=== PATIENT | female | born 2000 | race Asian ===

== ENCOUNTER 2023-05-26 06:16 | Emergency (ER) | payer OTHER, SELFPAY ==
--- NOTE | ~2023-05-26 | US_ITS ---
EXAMINATION: US PELVIS COMPLETE CLINICAL INFORMATION: Lower abdominal pain COMPARISON: CT abdomen from 05/26/2023 TECHNIQUE: Transabdominal images of the pelvis were obtained. FINDINGS: UTERUS: Anteverted. Normal size and contour, measuring 7.6 x 3.6 x 4.6 cm (cervix to fundus x AP x transverse). Uniform, homogeneous endometrium measures 1.2 cm in width. RIGHT OVARY: Normal size and echogenicity measuring 3.4 x 2.6 x 2 3.6 cm, volume 16.7 mL. Vascular flow noted in the right ovary. Complex hypoechoic focus in the right ovary measuring 1.7 x 1.8 x 1.3 cm. LEFT OVARY: Normal size and echogenicity measuring 1.7 x 0.8 x 1.3 cm, volume 0.9 mL. Vascular flow noted in the left ovary. FREE FLUID: No pelvic free fluid. US/US pelvic ovarian doppler IMPRESSION: 1. Bilateral ovarian vascular flow identified. 2. Complex hypoechoic focus in the right ovary measuring 1.7 x 1.8 x 1.3 cm.
--- NOTE | ~2023-05-26 | US_ITS ---
EXAMINATION: US PELVIS COMPLETE CLINICAL INFORMATION: Lower abdominal pain COMPARISON: CT abdomen from 05/26/2023 TECHNIQUE: Transabdominal images of the pelvis were obtained. FINDINGS: UTERUS: Anteverted. Normal size and contour, measuring 7.6 x 3.6 x 4.6 cm (cervix to fundus x AP x transverse). Uniform, homogeneous endometrium measures 1.2 cm in width. RIGHT OVARY: Normal size and echogenicity measuring 3.4 x 2.6 x 2 3.6 cm, volume 16.7 mL. Vascular flow noted in the right ovary. Complex hypoechoic focus in the right ovary measuring 1.7 x 1.8 x 1.3 cm. LEFT OVARY: Normal size and echogenicity measuring 1.7 x 0.8 x 1.3 cm, volume 0.9 mL. Vascular flow noted in the left ovary. FREE FLUID: No pelvic free fluid. US/US pelvic limited IMPRESSION: 1. Bilateral ovarian vascular flow identified. 2. Complex hypoechoic focus in the right ovary measuring 1.7 x 1.8 x 1.3 cm.
--- NOTE | ~2023-05-26 | CT_ITS ---
EXAMINATION: CT ABDOMEN AND PELVIS WITH CONTRAST CLINICAL INFORMATION: Abdominal pain COMPARISON: None available. TECHNIQUE: Multidetector volumetric images were obtained from the superior aspect of the liver through the pubic symphysis following administration 85 mL of Omnipaque 350 intravenous contrast. Sagittal and coronal reformatted images were obtained on the technologist's workstation. Oral contrast: No This CT examination was performed using dose optimization techniques as appropriate, variously including the following: *Automated exposure control *Adjustment of mA and/or kV according to patient size (this includes techniques or standardized protocols for targeted exams where dose is matched to indication/reason for exam; i.e. extremities or head) *Use of iterative reconstruction technique DLP: 477 mGy-cm FINDINGS: LUNG BASES: The visualized lung bases are unremarkable. LIVER, GALLBLADDER, AND BILIARY TREE: The liver is normal in size, shape, and attenuation. No focal hepatic lesion or biliary ductal dilatation is present. The gallbladder is unremarkable with no evidence of radiopaque gallstones, gallbladder wall thickening, or obvious pericholecystic inflammatory changes. PANCREAS: Unremarkable. SPLEEN: Unremarkable. ADRENAL GLANDS: Unremarkable. KIDNEYS AND URETERS: The kidneys are normal in size, shape, and attenuation. No hydronephrosis, hydroureter, or calculi seen. No perinephric stranding. BLADDER: Unremarkable. GASTROINTESTINAL TRACT: The small and large bowel are unremarkable. The appendix is unremarkable. There is large amount of retained feces consistent with constipation. ABDOMINAL WALL: No significant hernia is appreciated. LYMPH NODES: Normal. VASCULAR: Unremarkable. PELVIC VISCERA: Uterus is anteverted. There is small amount of fluid in right adnexa, adjacent to the cystic structure in the right ovary, left ovary is unremarkable OSSEOUS STRUCTURES: Unremarkable. CT/CT abdomen pelvis w IV con IMPRESSION: Constipation. Small amount of fluid in the right adnexa adjacent to cystic structure in the right ovary. Correlate with pelvic ultrasound Fleischner guidelines were followed.
[2023-05-26 06:21] VITALS: BP 133/77; PULSE 87; RESP 16; TEMP 36.9; O2SAT 98; BMI 28.0
[2023-05-26 07:28] VITALS: BP 125/90; PULSE 74; RESP 19; TEMP 36.7; O2SAT 100
[2023-05-26 07:47] LABS: MANUAL DIFF FLAG NO
[2023-05-26 07:51] LABS: Basophils Absolute Auto 0.1 X10*3/uL (0.0-0.2); Basophils Percent Auto 0.7 % (0-2); Eosinophils Absolute Auto 0.2 X10*3/uL (0.0-0.4); Eosinophils Percent Auto 2.5 % (0-4); Hematocrit 41.7 % (37.0-47.0); Hemoglobin 13.6 g/dl (12.0-16.0); Imm Gran Abs Auto 0.02 X10*3/uL (0.00-0.03); Imm Gran Pct Auto 0.2 % (0.0-0.4); Lymphocytes Absolute Auto 3.5 X10*3/uL (1.2-4.9); Lymphocytes Percent Auto 41.4 % (20-40); Mean Corpuscular HGB Conc 32.6 g/dl (31.0-35.0); Mean Corpuscular Hemoglobin 27.9 pg (27.0-33.0); Mean Corpuscular Volume 85.6 fL (80.0-98.0); Mean Platelet Volume 9.7 fL (9.4-12.3); Monocytes Absolute Auto 0.6 X10*3/uL (0.1-1.2); Monocytes Percent Auto 7.6 % (2-11); Neutrophils Percent Auto 47.6 % (45-73); Platelet Count 391 X10*3/uL (160-400); Red Blood Count 4.87 X10*6/uL (4.20-5.50); Red Cell Distribution Width 12.7 % (11.0-16.0); White Blood Count 8.4 X10*3/uL (4.8-10.8)
--- NOTE | 2023-05-26 07:57 | ED.GENADULT ---
HPI - General Adult General Chief complaint: Abdominal Pain Stated complaint: Abd pain Time Seen by Provider: 05/26/23 07:39 Source: patient Mode of arrival: ambulatory Limitations: no limitations History of Present Illness HPI narrative: 22 yr old female with a history of chronic constipation on daily Miralax presenting with abdominal pain and constipation for 5 days. Patient reports she has been having sharp pain below her belly button that radiates to her buttocks since Sunday that is severe. She states went to the ER on Sunday per recommendation for her PCP, but she left because the wait was too long. She states her pain improved Sunday, but this morning she woke up with 12/10 pain. Currently pain is about 2/10. Patient denies fever, chills, sick contacts, nausea, vomiting, diarrhea, pain with urination, or increased urination. Patient reports her last bowel movement was on Sunday that was soft and formed. She states that many of her previous bowel movements have had bright red blood and required straining last time she noted blood in stool was over a week and a half ago. She denies pain with defecation. Patients periods are regular with next period expect on 06/03. Denies being sexually active. Patient previously present to the ER at [facility] about 1 month ago and was diagnosed with colitis. Patient has an appointment with GI on 06/11. Related Data Previous Rx's Medication Instructions Recorded docusate sodium 100 mg capsule 100 mg PO BID #20 caps 05/26/23 (Colace) sennosides 8.6 mg tablet (senna) 8.6 mg PO BEDTIME #14 tabs 05/26/23 Allergies Allergy/AdvReac Type Severity Reaction Status Date / Time No Known Allergies Allergy Verified 05/26/23 06:21 Review of Systems Review of Systems: Constitutional : No Weight loss, No Fever, No Chills, No Fatigue, No Malaise ENT/Mouth : No sore throat, No Rhinorrhea Eyes: No Eye Pain, No Swelling, No Redness Cardiovascular : No Chest Pain, No SOB, No Dyspnea on Exertion, No Orthopnea, No Edema, No Palpitations Respiratory : No Cough, No Sputum, No Wheezing Gastrointestinal : + abdominal pain, constipation. No Nausea, No Vomiting, No Diarrhea,No Hematochezia, No Melena Genitourinary : No Dysuria, No Urinary Frequency, No Hematuria, Musculoskeletal : No joint pain, No Myalgias, No Joint Swelling Skin : No Skin Lesions, No rash Neuro : No Weakness, No Numbness, No Dizziness, No Headache Psych : No Anxiety/Panic, No Depression Heme/Lymph: No Bruising, No Bleeding,No Lymphadenopathy Endocrine : No Polyuria, No Polydipsia All other systems reviewed and are negative [facility] Social History Social History Smoked in Last 30 Days: No Use of substances other than those prescribed or required for medical reasons: No Advance Directives: No Physical Exam ED Vital Signs: Vital Signs - 24 hr 05/26/23 06:21 05/26/23 07:28 Temperature 98.4 F 98.0 F Pulse Rate 87 74 Respiratory Rate 16 19 Blood Pressure 133/77 125/90 H Pulse Oximetry 98 100 Oxygen Delivery Method Room Air Room Air BMI result Body Mass Index 28.0 vss Appearance: Alert.? Oriented X3.? No acute distress.? Head: Normocephalic, atraumatic, no step-offs or deformities Eyes: Pupils equal, round and reactive to light.? ENT: Pharynx normal.??External ears normal, TMs normal bilaterally and EAC's normal. No pain with manipulation of external ears bilaterally. No mastoid tenderness. Neck: Normal inspection.? Neck supple.? CVS: Normal heart rate and rhythm.? Pulses normal.? Respiratory: No respiratory distress.? Breath sounds normal.? Abdomen: + midline periumbilical and epigastric pain to palpation. No rebound tenderness. Abdomen soft with active bowel sounds throughout. Negative McBurney's sign. Skin: Skin warm and dry.? Normal skin color.? Normal skin turgor.? Extremities: No lower extremity edema.? No calf ttp. 5/5 strength to bilateral upper and lower extremities Back: No midline tenderness, no C-spine tenderness, full range of motion, no CVA tenderness bilaterally Neuro: Oriented X 3.? No motor deficit.? No sensory deficit. CN 2-12 intact Course Reevaluation(s) Reevaluation #1: CBC unremarkable. Chemistry no acute findings requiring intervention. Lipase normal. Beta hCG negative. UA without infection. No need for rectal exam patient very anxious about this, she has not having active rectal bleeding she states the last time she blood in her stool was over a week and a half ago. She did speak to her doctor about this and they explained her she likely has hemorrhoids. She is waiting to see GI. CT abdomen pelvis with constipation and small amount of fluid in the right adnexa, cystic structure in the right ovary, ultrasound was ordered better evaluate this as patient is having lower abdominal pain. Ultrasound showing bilateral ovarian vascular flow identified therefore unlikely torsion. No signs of ectopic . However ultrasound does show a complex hypoechoic focus in the right ovary measuring 1.7 x 1.8 x 1.3 cm. Advised for her to follow-up with PCP as well as OBGYN. Will discharge patient home with Raymon benitez. Patient reports her pain is well controlled and she feels okay. She is requesting to leave because she has prior commitments and needs to get out of here before 02:00 o'clock. Tolerating PO. Educated patient on diagnosis and treatment plan, answered all question, patient verbalizes understanding. At this time patient will be discharged home, advised to return with new or worsening symptoms. Educated on worrisome signs and symptoms and when to return. At this time I feel comfortable discharge home. Time: 12:58 Medications Administered Discontinued Medications Generic Name Dose Route Start Last Admin Trade Name Freq PRN Reason Stop Dose Admin Iohexol 100 ml 05/26/23 08:44 05/26/23 08:44 Iohexol 350 Mg/Ml 100 Ml Infus..Btl IV 05/26/23 08:45 85 ml ONCE ONE Administration Medical Decision Making Medical Decision Making [facility] Narrative: 22 yr old female with a history of chronic constipation on daily Miralax presenting with abdominal pain and constipation for 5 days. PE significant for periumbilical and epigastric pain to palpation. Negative McBurneys. Most likely colitis vs constipation vs hemorrhoids. Unlikely obstruction, diverticulosis, pancreatitis, appendicitis, , acute abdomen, ovarian torsion, ovarian cyst, uterine fibroids/cysts, cholesytitis. Plan labs, imaging Differential Diagnosis Differential Diagnoses: The differential diagnosis associated with the presentation includes Most likely colitis vs constipation vs hemorrhoids. Unlikely obstruction, diverticulosis, pancreatitis, appendicitis, , acute abdomen, ovarian torsion, ovarian cyst, uterine fibroids/cysts, cholesytitis. Admission/Observation Consideration of admission/observation: Escalation of care including admission/observation considered Lab Data [facility] Lab Attestation statement: I reviewed the patient's lab results. CBC and CMP WNL HcG < 2 Lipase negative UA 05/26/23 07:43 05/26/23 07:43 Labs: Lab Results 05/26/23 05/26/23 Range/Units 07:43 10:55 WBC 8.4 (4.8-10.8) X10*3/uL RBC 4.87 (4.20-5.50) X10*6/uL Hgb 13.6 (12.0-16.0) g/dl Hct 41.7 (37.0-47.0) % MCV 85.6 (80.0-98.0) fL MCH 27.9 (27.0-33.0) pg MCHC 32.6 (31.0-35.0) g/dl RDW 12.7 (11.0-16.0) % Plt Count 391 (160-400) X10*3/uL MPV 9.7 (9.4-12.3) fL Immature Gran % (Auto) 0.2 (0.0-0.4) % Neut % (Auto) 47.6 (45-73) % Lymph % (Auto) 41.4 H (20-40) % Andrew % (Auto) 7.6 (2-11) % Eos % (Auto) 2.5 (0-4) % Baso % (Auto) 0.7 (0-2) % Lymph # (Auto) 3.5 (1.2-4.9) X10*3/uL [place] # (Auto) 0.6 (0.1-1.2) X10*3/uL Eos # (Auto) 0.2 (0.0-0.4) X10*3/uL Baso # (Auto) 0.1 (0.0-0.2) X10*3/uL Abs Immat Gran (auto) 0.02 (0.00-0.03) X10*3/uL Absolute Neuts (auto) 4.0 (2.0-8.3) x10*3/uL Absolute Nucleated RBC 0.000 (0.0-0.012) X10*3/uL Nucleated RBC % (auto) 0.0 (0.0-0.2) /100WBC Sodium 141 (135-145) mmol/L Potassium 4.2 (3.3-5.1) mmol/L Chloride 111 H (96-108) mmol/L Carbon Dioxide 23 (22-29) mmol/L Anion Gap 11 L (12-20) BUN 8 L (9-16) mg/dL Creatinine 0.72 (0.5-1.4) mg/dL Estim Creat Clear Calc 104.0 Estimated GFR > 60 Random Glucose 95 (60-115) mg/dL Calcium 9.5 (8.4-10.2) mg/dL Total Bilirubin 0.2 (0.0-1.0) mg/dL AST 20 (5-31) U/L ALT 21 (0-31) U/L Alkaline Phosphatase 91 (39-117) U/L Total Protein 7.5 (6.5-8.0) g/dL Albumin 4.2 (3.5-5.0) g/dL Lipase 27 (8-78) U/L Beta HCG, Quant < 2 mIU/mL Urine Color Yellow Urine Appearance Clear Urine pH 7.0 (5.0-9.0) Ur Specific [place] >= 1.030 H (1.005-1.025) Urine Protein Negative (Neg-Trace) mg/dL Urine Glucose (UA) Negative (Negative) mg/dL Urine Ketones Negative (Negative) mg/dL Urine Blood Negative (Negative) Urine Nitrite Negative (Negative) Ur Leukocyte Esterase Negative (Negative) Independent Interpretation I performed an independent interpretation of an: Ultrasound (US/US pelvic limited IMPRESSION: 1. Bilateral ovarian vascular flow identified. 2. Complex hypoechoic focus in the right ovary measuring 1.7 x 1.8 x 1.[address] Scan (CT abdomen pelvis w IV con IMPRESSION: Constipation. Small amount of fluid in the right adnexa adjacent to cystic structure in the right ovary. Correlate with pelvic ultrasound) Radiology Impression Discussion of test interpretation with radiology: I have reviewed the radiologist's reading. Radiologist Impression: CT abdomen pelvis w IV con IMPRESSION: Constipation. Small amount of fluid in the right adnexa adjacent to cystic structure in the right ovary. Correlate with pelvic ultrasound US/US pelvic limited IMPRESSION: 1. Bilateral ovarian vascular flow identified. 2. Complex hypoechoic focus in the right ovary measuring 1.7 x 1.8 x 1.3 cm. Patient refused transvaginal US External Record Review External record reviewed: Inpatient record Critical Care Time Critical Care Time Critical Care Time: No Discharge Plan Discharge Clinical Impression: Constipation, Ovarian cyst, right, Abdominal pain Patient Disposition: Home, Self-Care Instructions: Ovarian Cyst (ED), Constipation (ED), High Fiber Diet (ED), Abdominal Pain (ED) Additional Instructions: Take your medications as prescribed. If you were prescribed antibiotics today, it is important that you take your medication to their entirety, do not skip any doses, do not finish them early. Follow-up with your primary care provider this week. Return to the emergency department with new or worsening symptoms. Such as fevers, chills, chest pain, shortness of breath, nausea, vomiting, dizziness, headache, vision changes, lethargy In case of emergency call 911 CT/CT abdomen pelvis w IV con IMPRESSION: Constipation. Small amount of fluid in the right adnexa adjacent to cystic structure in the right ovary. Correlate with pelvic ultrasound Fleischner guidelines were followed. US/US pelvic limited IMPRESSION: 1. Bilateral ovarian vascular flow identified. 2. Complex hypoechoic focus in the right ovary measuring 1.7 x 1.8 x 1.3 cm. Prescriptions: New sennosides [senna] 8.6 mg tablet 8.6 mg PO BEDTIME Qty: 14 0RF docusate sodium [Colace] 100 mg capsule 100 mg PO BID Qty: 20 0RF Referrals: Loreta Rios MD [Primary Care Provider] - 2 days [facility]Provider Group] - 2 days Stand Alone Forms: Work/School Release
[2023-05-26 08:16] LABS: Alanine Aminotransferase 21 U/L (0-31); Albumin Level 4.2 g/dL (3.5-5.0); Alkaline Phosphatase 91 U/L (39-117); Anion Gap 11 (12-20); Aspartate Amino Transferase 20 U/L (5-31); Bilirubin Total 0.2 mg/dL (0.0-1.0); Blood Urea Nitrogen 8 mg/dL (9-16); Calcium 9.5 mg/dL (8.4-10.2); Carbon Dioxide 23 mmol/L (22-29); Chloride 111 mmol/L (96-108); Estimated Glomerular Filt Rate > 60; Glucose Random 95 mg/dL (60-115); Lipase 27 U/L (8-78); Potassium 4.2 mmol/L (3.3-5.1); Sodium 141 mmol/L (135-145); Total Protein 7.5 g/dL (6.5-8.0)
[2023-05-26 08:19] LABS: HCG Quantitative < 2 mIU/mL
--- NOTE | 2023-05-26 08:25 | PC.NURSE ---
assumed care of pt at 0700. pt a&o x4, pleasant, calm, and cooperative. labs drawn and sent. 20G IV placed to RAC. pt to CT scan. plan of care ongoing.
[2023-05-26] MEDS: iohexoL 350 MG/ML 100 ML INFUS..BTL IV (08:44)
[2023-05-26 11:05] LABS: Appearance Urine Clear; Color Urine Yellow; Glucose Urine UA Negative (Negative); Leukocyte Esterase Urine Negative (Negative); Nitrite Urine Negative (Negative); Specific Gravity - Urine >= 1.030 (1.005-1.025); Urine Blood Negative (Negative); Urine Ketones Negative (Negative); Urine Protein Negative (Neg-Trace)
[2023-05-26] MEDS: polyethylene glycoL 3350 17 GM POWD.PACK PO (13:01)
[2023-05-26] MEDS: Docusate Sodium 100 MG CAPSULE PO (13:01)
== END 2023-05-26 13:25 | disposition home or self-care (01) ==
PROVIDERS: Emergency Provider Emergency Medicine; PCP Internal Medicine
DX: K59.00 Constipation, unspecified (principal); N83.201 Unspecified ovarian cyst, right side; R10.9 Unspecified abdominal pain
CPT/HCPCS: 36415; 74177; 76856; 76857; 80053; 81003; 83690; 84702; 85025; 93975; 99284; Q9967

== ENCOUNTER 2024-04-26 18:04 | Emergency (ER) | payer OTHER, SELFPAY ==
--- NOTE | ~2024-04-26 | XR_ITS ---
EXAMINATION: XR ABDOMEN KUB CLINICAL INDICATION: constipation COMPARISON: None available. TECHNIQUE: AP view of the abdomen. FINDINGS: The bowel gas pattern is normal with no evidence of ileus or obstruction. No unusual soft tissue calcifications are noted. The bones are unremarkable. XR/XR KUB IMPRESSION: Unremarkable examination. Electronically signed by: Aren Gonzalez MD 04/26/2024 08:17 PM [facility]
[2024-04-26 18:13] VITALS: BP 151/104; PULSE 118; RESP 20; TEMP 37.3; O2SAT 98; BMI 27.4
--- NOTE | 2024-04-26 18:13 | ED.GENADULT ---
HPI - General Adult General Chief complaint: Abdominal Pain Stated complaint: constipation Time Seen by Provider: 04/26/24 20:12 Source: patient Limitations: no limitations History of Present Illness ED Provider: Tonya Gant PA-C HPI narrative: 23-year-old female with a history of, constipation followed by Gastroenterology, presents with constipation times 4 days. Patient states she takes a prescription medication to manage her constipation. She states she exercises daily, she follows a strict high-fiber diet, and drinks at least 8 oz of water a day. Despite her efforts, the patient still struggles with constipation. Associated abdominal distention, and inability to fully empty her bladder. Denies inability to pass flatus, nausea vomiting or fever. Related Data Previous Rx's ?Medication ?Instructions ?Recorded docusate sodium 100 mg capsule 100 mg PO BID #20 caps 05/26/23 (Colace) sennosides 8.6 mg tablet (senna) 8.6 mg PO BEDTIME #14 tabs 05/26/23 Allergies Allergy/AdvReac Type Severity Reaction Status Date / Time No Known Allergies Allergy Verified 04/26/24 18:15 Review of Systems Review of Systems: Yes all other systems are reviewed and are negative Constitutional: Constitutional: Denies fatigue and Denies fever(s) Cardiovascular: Cardiovascular: Denies chest pain and Denies dyspnea Respiratory: Respiratory: Denies dyspnea Gastrointestinal: Gastrointestinal: Reports abdominal pain, Reports bloating, Reports constipation, Reports GI cramping, Denies nausea and Denies vomiting Endocrine: Endocrine: Denies fatigue PMFSH Past Medical History Attestation statement: The following information was validated with the patient. Social History Social History Alcohol intake: never Smoked in Last 30 Days: No Use of substances other than those prescribed or required for medical reasons: No Advance Directives: No Advance Directives Information Provided: No Patient : No Physical Exam ED Vital Signs: Vital Signs - 24 hr 04/26/24 18:13 04/26/24 19:55 04/26/24 22:06 Temperature 99.1 F 98.4 F 98.6 F Pulse Rate 118 H 100 98 Respiratory Rate 20 16 16 Blood Pressure 151/104 H 124/82 113/81 Pulse Oximetry 98 98 98 Oxygen Delivery Method Room Air Room Air Room Air 04/27/24 00:11 04/27/24 01:10 Temperature 98.4 F 98.4 F Pulse Rate 105 H 105 H Respiratory Rate 16 16 Blood Pressure 129/73 129/73 Pulse Oximetry 96 96 Oxygen Delivery Method Room Air Room Air BMI result Body Mass Index 27.4 Const Other: Alert, anxious and tearful Orientation/consciousness: patient oriented x3 Resp Other: Nonlabored respiration Cardio Other: Normal peripheral perfusion GI Other: Abdomen is soft, nondistended, generalized tenderness across the abdomen, no guarding fecal impaction noted Skin Other: Warm dry no rash Neuro General: patient oriented x3, gait normal, no focal motor deficits and CN's II-XI intact bilaterally Psych Other: cooperative Course Course Course Narrative: This is an RME: Additional HPI, ROS, PE not included below will be deferred to primary provider. RME assessment and note performed by: Arabella Kimball PA-C 22 yr old female with a history of chronic constipation, who presents emergency department with concerns for worsening chronic constipation. Patient has been seen by Gastroenterology, and has been to the ER multiple times for similar symptoms. She has been taking [id number] medications without relief. Patient reports distended abdomen, last bowel movement was on Sunday. Abdomen is soft however slightly distended. Patient states that she has been unable to use a suppository given hemorrhoids. Plan: Labs, UA, KUB Medications Administered Discontinued Medications Generic Name Dose Route Start Last Admin Trade Name Freq PRN Reason Stop Dose Admin Diazepam 5 mg 04/26/24 21:01 04/26/24 21:11 Diazepam 10 Mg/2 Ml Cartridge IVPUSH 04/26/24 21:02 5 mg STAT STA Administration Medical Decision Making Medical Decision Making [facility] Narrative: 23-year-old female with a history of, constipation followed by Gastroenterology, presents with constipation times 4 days. Patient states she takes a prescription medication to manage her constipation. She states she exercises daily, she follows a strict high-fiber diet, and drinks at least 8 oz of water a day. Despite her efforts, the patient still struggles with constipation. Associated abdominal distention, and inability to fully empty her bladder. Denies inability to pass flatus, nausea vomiting or fever. Problem: Chronic constipation History: Per patient I have considered the following differential diagnoses: Constipation, fecal impaction, bowel obstruction, obstipation, megacolon Plan: Screening labs and a KUB were obtained from triage, the patient is in fact constipated with a fecal impaction. We will disimpact the patient. No evidence of bowel obstruction. I have independently reviewed the following tests: Labs: Slight leukocytosis, not anemic, no electrolyte abnormality KUB: XR/XR KUB IMPRESSION: Unremarkable examination. Lab Data 04/26/24 19:16 04/26/24 19:16 Labs: Lab Results 04/26/24 Range/Units 19:16 WBC 12.9 H (4.8-10.8) X10*3/uL RBC 5.05 (4.20-5.50) X10*6/uL Hgb 12.3 (12.0-16.0) g/dl Hct 39.3 (37.0-47.0) % MCV 77.8 L (80.0-98.0) fL MCH 24.4 L (27.0-33.0) pg MCHC 31.3 (31.0-35.0) g/dl RDW 15.6 (11.0-16.0) % Plt Count 557 H D (160-400) X10*3/uL MPV 9.3 L (9.4-12.3) fL Immature Gran % (Auto) 0.3 (0.0-0.4) % Neut % (Auto) 65.0 (45-73) % Lymph % (Auto) 26.4 (20-40) % [place] % (Auto) 7.1 (2-11) % Eos % (Auto) 0.7 (0-4) % Baso % (Auto) 0.5 (0-2) % Lymph # (Auto) 3.4 (1.2-4.9) X10*3/uL [place] # (Auto) 0.9 (0.1-1.2) X10*3/uL Eos # (Auto) 0.1 (0.0-0.4) X10*3/uL Baso # (Auto) 0.1 (0.0-0.2) X10*3/uL Abs Immat Gran (auto) 0.04 H (0.00-0.03) X10*3/uL Absolute Neuts (auto) 8.4 H (2.0-8.3) x10*3/uL Absolute Nucleated RBC 0.000 (0.0-0.012) X10*3/uL Nucleated RBC % (auto) 0.0 (0.0-0.2) /100WBC Sodium 139 (135-145) mmol/L Potassium 4.1 (3.3-5.1) mmol/L Chloride 109 H (96-108) mmol/L Carbon Dioxide 20 L (22-29) mmol/L Anion Gap 14 (12-20) BUN 7 L (9-16) mg/dL Creatinine 0.77 (0.5-1.4) mg/dL Estim Creat Clear Calc 99.5 Estimated GFR > 60 Random Glucose 99 (60-115) mg/dL Calcium 9.5 (8.4-10.2) mg/dL Magnesium 2.1 (1.6-2.6) mg/dL Total Bilirubin 0.3 (0.0-1.0) mg/dL AST 30 (5-31) U/L ALT 21 (0-31) U/L Alkaline Phosphatase 94 (39-117) U/L Total Protein 8.6 H (6.5-8.0) g/dL Albumin 4.7 (3.5-5.0) g/dL Lipase 20 (8-78) U/L Beta HCG, Quant < 2 mIU/mL Discharge Plan Discharge Clinical Impression: Constipation Patient Disposition: Home, Self-Care Instructions: Constipation (ED) Additional Instructions: You were found to be constipated and had a fecal impaction. The fecal impaction was removed. You still have a significant stool burden. Tomorrow, you need to use MiraLax every hour until you begin defecating clear liquid. You essentially are performing a bowel preparation as if you were having a colonoscopy. I would start using a stool softener such as Colace daily, this medication can be purchased [id number]. Once you have cleared your current stool burden, I would resume the prescribed medication that your bss solution architect has given you. In addition, I would suggest using a pre and pro biotic supplement such as Super greens. I would also call your bss solution architect on Sunday for further guidance. Prescriptions: No Action sennosides [senna] 8.6 mg tablet 8.6 mg PO BEDTIME Qty: 14 0RF docusate sodium [Colace] 100 mg capsule 100 mg PO BID Qty: 20 0RF Stand Alone Forms: Work/School Release Interventions: ED Discharge Assessment Last Done: 04/27/24 01:10 Discharge Date/Time: 04/27/24 01:00 Print Language: Japanese
--- NOTE | 2024-04-26 19:17 | MHC.EDTECH ---
Patient was called to triage area,labs drawn and sent to lab,pt was unable to give a urine at this time.
[2024-04-26 19:26] LABS: MANUAL DIFF FLAG NO
[2024-04-26 19:27] LABS: Basophils Absolute Auto 0.1 X10*3/uL (0.0-0.2); Basophils Percent Auto 0.5 % (0-2); Eosinophils Absolute Auto 0.1 X10*3/uL (0.0-0.4); Eosinophils Percent Auto 0.7 % (0-4); Hematocrit 39.3 % (37.0-47.0); Hemoglobin 12.3 g/dl (12.0-16.0); Imm Gran Abs Auto 0.04 X10*3/uL (0.00-0.03); Imm Gran Pct Auto 0.3 % (0.0-0.4); Lymphocytes Absolute Auto 3.4 X10*3/uL (1.2-4.9); Lymphocytes Percent Auto 26.4 % (20-40); Mean Corpuscular HGB Conc 31.3 g/dl (31.0-35.0); Mean Corpuscular Hemoglobin 24.4 pg (27.0-33.0); Mean Corpuscular Volume 77.8 fL (80.0-98.0); Mean Platelet Volume 9.3 fL (9.4-12.3); Monocytes Absolute Auto 0.9 X10*3/uL (0.1-1.2); Monocytes Percent Auto 7.1 % (2-11); Neutrophils Absolute Auto 8.4 x10*3/uL (2.0-8.3); Platelet Count 557 X10*3/uL (160-400); Red Blood Count 5.05 X10*6/uL (4.20-5.50); Red Cell Distribution Width 15.6 % (11.0-16.0); White Blood Count 12.9 X10*3/uL (4.8-10.8)
[2024-04-26 19:47] LABS: Alanine Aminotransferase 21 U/L (0-31); Albumin Level 4.7 g/dL (3.5-5.0); Alkaline Phosphatase 94 U/L (39-117); Anion Gap 14 (12-20); Aspartate Amino Transferase 30 U/L (5-31); Bilirubin Total 0.3 mg/dL (0.0-1.0); Blood Urea Nitrogen 7 mg/dL (9-16); Calcium 9.5 mg/dL (8.4-10.2); Carbon Dioxide 20 mmol/L (22-29); Chloride 109 mmol/L (96-108); Creatinine Clr Calc Pharmacy 99.5; Estimated Glomerular Filt Rate > 60; Glucose Random 99 mg/dL (60-115); Lipase 20 U/L (8-78); Magnesium 2.1 mg/dL (1.6-2.6); Potassium 4.1 mmol/L (3.3-5.1); Sodium 139 mmol/L (135-145); Total Protein 8.6 g/dL (6.5-8.0)
[2024-04-26 19:49] LABS: HCG Quantitative < 2 mIU/mL
[2024-04-26 19:55] VITALS: BP 124/82; PULSE 100; RESP 16; TEMP 36.9; O2SAT 98
[2024-04-26] MEDS: diazePAM 10 MG/2 ML CARTRIDGE 5 MG IVPUSH (21:11)
[2024-04-26 22:06] VITALS: BP 113/81; PULSE 98; RESP 16; TEMP 37; O2SAT 98
[2024-04-27 00:11] VITALS: BP 129/73; PULSE 105; RESP 16; TEMP 36.9; O2SAT 96
[2024-04-27 01:10] VITALS: BP 129/73; PULSE 105; RESP 16; TEMP 36.9; O2SAT 96
== END 2024-04-27 01:00 | disposition home or self-care (01) ==
PROVIDERS: Physician Assistant Medical; Emergency Provider Emergency Medicine; PCP Internal Medicine
DX: K59.00 Constipation, unspecified (principal); R14.0 Abdominal distension (gaseous); R10.84 Generalized abdominal pain; Z79.899 Other long term (current) drug therapy
CPT/HCPCS: 36415; 74018; 80053; 83690; 83735; 84702; 85025; 99284; J3360